=== PATIENT | male | born 1955 | race Caucasian/White ===

== ENCOUNTER → 2024-03-11 | Outpatient (CLI) | payer MEDICARE, SELFPAY ==
[2024-03-11 22:22] LABS: Absolute Lymphocyte Count 2.17 X10^3/uL (0.83-4.51); Absolute Neutrophil Count 7.7 X10^3/uL (2.0-7.7); Basophil# 0.04 X10^3/uL; Basophil% 0.4 % (0-1); Eosinophil# 0.18 X10^3/uL; Eosinophils% 1.7 % (0-5); Hematocrit 49.4 % (40-54); Hemoglobin 16.6 g/dL (13.0-16.5); Lymphocyte # 2.17 X10^3/ul (0.83-4.51); Lymphocyte % 20.1 % (19-41); Mean Corp Hgb Conc 33.6 g/dL (32-36); Mean Corpuscular Hgb 30.5 pg (27.0-32.0); Mean Corpuscular Volume 90.6 fL (80-94); Mean Platelet Vol. 11.2 fl (6.2-12.0); Monocyte# 0.71 X10^3/uL; Monocyte% 6.6 % (0-10); NRBC Flagged by Analyzer 0 % (0-5); Neutrophil # 7.66 X10^3/uL (2.7-7.7); Neutrophil % 70.9 % (47-70); Platelet Count 241 K/mm3 (150-450); RBC Distribution Width SD 42.5 fl (35.1-43.9); Red Blood Count 5.45 M/mm3 (4.6-6.2); White Blood Count 10.8 K/mm3 (4.4-11.0)
[2024-03-11 22:46] LABS: ALB/GLOB Ratio 1.3 RATIO (0.9-2.4); AST(SGOT) 23 U/L (15-37); Alanine Aminotransfer ALT/SGPT 43 U/L (16-61); Albumin, Serum 4.2 g/dL (3.2-5.0); Alkaline Phosphatase 83 U/L (45-117); Anion Gap 7 (5-15); BUN 25 mg/dL (7-18); BUN/Creat Ratio 19.5 RATIO (10-20); Calcium,Total 9.5 mg/dL (8.5-10.1); Chloride 108 mmol/L (98-107); Cholesterol 182 mg/dL (200); Creatinine, Serum 1.28 mg/dL (0.70-1.30); EST Glomerular Filtration Rate 59 mL/min (>60); Est Glom Filt Rate - Afr Amer 72 mL/min (>60); Globulin 3.3 g/dL (2.2-4.2); Glucose 102 mg/dL (74-106); High Density Lipoprotein 52 mg/dL; Potassium 3.9 mmol/L (3.5-5.1); Protein, Total 7.5 g/dL (6.4-8.2); Sodium Level 139 mmol/L (136-145); Thyroid Stim Hormone (TSH) 4.02 uIU/mL (0.358-3.74); Triglycerides 108 mg/dL; Very Low Density Lipoprotein 22 mg/dL (5-40)
== END | disposition home or self-care (01) ==
PROVIDERS: Referring Provider Nurse Practitioner; Visit Provider Nurse Practitioner
DX: E78.00 Pure hypercholesterolemia, unspecified (principal); K74.60 Unspecified cirrhosis of liver; B19.20 Unspecified viral hepatitis C without hepatic coma; F41.9 Anxiety disorder, unspecified
CPT/HCPCS: 80053; 80061; 80074; 84443; 85025

== ENCOUNTER → 2024-04-11 | Outpatient (CLI) | payer MEDICARE, SELFPAY ==
[2024-04-11 21:46] LABS: Thyroid Stim Hormone (TSH) 1.45 uIU/mL (0.358-3.74)
== END | disposition home or self-care (01) ==
PROVIDERS: Referring Provider Nurse Practitioner; Visit Provider Nurse Practitioner
DX: E03.9 Hypothyroidism, unspecified (principal)
CPT/HCPCS: 84443

== ENCOUNTER → 2025-04-21 | Outpatient (CLI) | payer MEDICARE, SELFPAY ==
--- OUTSIDE RECORDS SUMMARY | 2025-04-21 23:08 | XMS RPT_ITS | CCD ---
Author Organization [facility] Care Team Providers Care 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 Printer Name Role Phone Anay Díaz DO Primary Care Provider [phone] Franki MEAT SOAKER, Laverne Attending Unavailable Franki MEAT SOAKER, Laverne Referring Unavailable Franki MEAT SOAKER, Laverne Attending Unavailable Franki MEAT SOAKER, Laverne Referring Unavailable Anay Díaz DO Primary Care Provider [phone] Medications Current Medications Medication Drug Class(es) Dates Sig (Normalized) Sig (Original) escitalopram 10 mg oral tablet (3 sources) Serotonin Reuptake Inhibitor Start: 01-09-2023 End: 07-08-2023 take 1 tablet by mouth once daily escitalopram (Lexapro) 10 MG tablet Indications: Depression with anxiety Take 1 tablet (10 mg) by mouth daily. 30 tablet 5 01/09/2023 07/08/2023 Active Completed/Discontinued Medications Medication Drug Class(es) Dates Sig (Normalized) Sig (Original) bacitracin 0.5 unt/mg topical ointment (2 sources) Start: 10-29-2022 End: 10-29-2022 bacitracin ointment 10 ml lidocaine hydrochloride 10 mg/ml injection (2 sources) Antiarrhythmic, Amide Local Anesthetic Start: 10-29-2022 End: 10-29-2022 lidocaine PF (Xylocaine) 1 % injection - Pyxis ADS Override Pull Problems Active Problems Problem Classification Problem Date Documented Da te Episodic/Chronic Alcohol-related disorders (11 sources) Alcoholic cirrhosis; Translations: [Alcoholic cirrhosis of liver without ascites] Onset: 08-28-2019 Chronic Anxiety disorders (2 sources) Mixed anxiety and depressive disorder; Translations: [Other specified anxiety disorders] Onset: 02-09-2023 Chronic Disorders of lipid metabolism (1 source) Pure hypercholesterolemi a, unspecified; Translations: [Pure hypercholesterolemi a, unspecified] Onset: 06-01-2024 Chronic Essential hypertension (9 sources) Essential hypertension; Translations: [Essential (primary) hypertension] Onset: 02-06-2017 02-06-2017 Chronic Immunizations and screening for infectious disease (1 source) Viral screening status; Translations: [Encounter for screening for other viral diseases] Episodic Other and unspecified benign neoplasm (1 source) Hyperplastic polyp of large intestine; Translations: [Polyp of colon] Episodic Other ear and sense organ disorders (1 source) Bilateral tinnitus; Translations: [Tinnitus, bilateral] Episodic Other infections; including parasitic (1 source) H/O: infectious disease; Translations: [Personal history of other infectious and parasitic diseases] 01-17-2023 Episodic Other screening for suspected conditions (not mental disorders or infectious disease) (3 sources) Patient encounter status; Translations: [Encounter for screening for malignant neoplasm of colon] Episodic Thyroid disorders (1 source) Hypothyroidism, unspecified; Translations: [Hypothyroidism, unspecified] Onset: 05-06-2024 Chronic Unclassified (3 sources) Patient encounter status Past or Other Problems Problem Classification Problem Date Documented Da te Episodic/Chronic Open wounds of extremities (2 sources) Laceration of finger without foreign body; Translations: [Laceration without foreign body of right index finger without damage to nail, initial encounter] Episodic Other and unspecified benign neoplasm (1 source) Tubular adenoma of colon Onset: 07-06-2015 07-06-2015 Episodic Other and unspecified benign neoplasm (8 sources) History of adenomatous polyp of colon; Translations: [Personal history of colonic polyps] Onset: 02-18-2020 07-03-2022 Episodic Results Test Name Value Interpretation Reference Range Facil ity 36on 11-04-2024 36 Sent SubHub Message Normal [facility] Color [facility] Thyroid Stim Hormone (TSH)on 04-11-2024 TSH 1.45 uIU/mL Normal 0.358-3.74 [facility] Comment on above: Performed By: #### L 501.9583 #### [facility] [address] [place], [place], [id number] Hepatitis Panel Acuteon 07-0 HEPATITIS A-IgM Normal [facility] Comment on above: Result Comment: TEST RESULTS LIMITS Acute Hepatitis Hep A Ab, IgM Negative Negative HBsAg Screen Negative Negative Hep B Core Ab, IgM Negative Negative HCV Ab Reactive Abnormal Non Reactive Hepatitis C Quantitation HCV Not Detected IU/mL Test Information: The quantitative range of this assay is 15 IU/mL to 100 million IU/mL. Interpretation: Positive HCV antibody screen without the presence of HCV RNA is consistent with a resolved past infection or a false positive HCV antibody. Consider repeat testing after one month. TESTING PERFORMED AT [facility]. ORIGINAL REPORT ON FILE IN LAB CONTAINS ADDITIONAL TEST SITE INFORMATION. Performed By: #### L 501.9520, L100.0100, L500.4050, L500.4100, L3000.0375 #### [facility] [address] [place], [address] CBC W/Diff, Automatedon 06-2 -2023 Absolute Lymph 2.17 X10 3/uL Normal 0.83-4.51 [facility] Comment on above: Performed By: #### L 501.9520, L100.0100, L500.4050, L500.4100, L3000.0375 #### [facility] [address] [place], [address] Absolute Neut 7.7 X10 3/uL Normal 2.0-7.7 [facility] Comment on above: Performed By: #### L 501.9520, L100.0100, L500.4050, L500.4100, L3000.0375 #### [facility] [address] [place], [address] Basophils/100 WBC (Bld) 0.4 % Normal 0-1 [facility] Comment on above: Performed By: #### L 501.9520, L100.0100, L500.4050, L500.4100, L3000.0375 #### [facility] [address] [place], [address] Eosinophils/100 WBC (Bld) 1.7 % Normal 0-5 [facility] Comment on above: Performed By: #### L 501.9520, L100.0100, L500.4050, L500.4100, L3000.0375 #### [facility] [address] [place], [address] Erythrocyte distribution width (RBC) [Ratio] 13.0 % Normal 11.6-14.6 [facility] Comment on above: Performed By: #### L 501.9520, L100.0100, L500.4050, L500.4100, L3000.0375 #### [facility] [address] [place], [address] Hematocrit (Bld) [Volume fraction] 49.4 % Normal 40-54 [facility] Comment on above: Performed By: #### L 501.9520, L100.0100, L500.4050, L500.4100, L3000.0375 #### [facility] [address] [place], [address] Hemoglobin (Bld) [Mass/Vol] 16.6 g/dL High 13.0-16.5 [facility] Comment on above: Performed By: #### L 501.9520, L100.0100, L500.4050, L500.4100, L3000.0375 #### [facility] [address] [place], [address] IG% 0.300 Normal 0.0-0.9 [facility] Comment on above: Result Comment: IG% - Immature Granulocytes (promyelocytes, myelocytes and metamyelocytes) > 1% indicates that a LEFT SHIFT is Present. Performed By: #### L 501.9520, L100.0100, L500.4050, L500.4100, L3000.0375 #### [facility] [address] [place], [address] Lymphocytes/100 WBC (Bld) 20.1 % Normal 19-41 [facility] Comment on above: Performed By: #### L 501.9520, L100.0100, L500.4050, L500.4100, L3000.0375 #### [facility] [address] [place], [address] MCH (RBC) [Entitic mass] 30.5 pg Normal 27.0-32.0 [facility] Comment on above: Performed By: #### L 501.9520, L100.0100, L500.4050, L500.4100, L3000.0375 #### [facility] [address] [place], [address] MCHC (RBC) [Mass/Vol] 33.6 g/dL Normal 32-36 [facility] Comment on above: Performed By: #### L 501.9520, L100.0100, L500.4050, L500.4100, L3000.0375 #### [facility] [address] [place], [address] MCV (RBC) [Entitic vol] 90.6 fL Normal 80-94 [facility] Comment on above: Performed By: #### L 501.9520, L100.0100, L500.4050, L500.4100, L3000.0375 #### [facility] [address] [place], [address] Monocytes/100 WBC (Bld) 6.6 % Normal 0-10 [facility] Comment on above: Performed By: #### L 501.9520, L100.0100, L500.4050, L500.4100, L3000.0375 #### [facility] [address] [place], [address] Neutrophils/100 WBC (Bld) 70.9 % High 47-70 [facility] Comment on above: Performed By: #### L 501.9520, L100.0100, L500.4050, L500.4100, L3000.0375 #### [facility] [address] [place], [address] Nucleated RBC (Bld) [#/Vol] 0 10*3/uL Normal 0-5 [facility] Comment on above: Performed By: #### L 501.9520, L100.0100, L500.4050, L500.4100, L3000.0375 #### [facility] [address] [place], [address] Platelet mean volume (Bld) [Entitic vol] 11.2 fL Normal 6.2-12.0 [facility] Comment on above: Performed By: #### L 501.9520, L100.0100, L500.4050, L500.4100, L3000.0375 #### [facility] [address] [place], [address] Platelets (Bld) [#/Vol] 241 10*3/uL Normal 150-450 [facility] Comment on above: Performed By: #### L 501.9520, L100.0100, L500.4050, L500.4100, L3000.0375 #### [facility] [address] [place], [address] RBC (Bld) [#/Vol] 5.45 10*6/uL Normal 4.6-6.2 [facility] Comment on above: Performed By: #### L 501.9520, L100.0100, L500.4050, L500.4100, L3000.0375 #### [facility] [address] [place], [address] RDW SD 42.5 fl Normal 35.1-43.9 [facility] Comment on above: Performed By: #### L 501.9520, L100.0100, L500.4050, L500.4100, L3000.0375 #### [facility] [address] [place], [address] WBC (Bld) [#/Vol] 10.8 10*3/uL Normal 4.4-11.0 [facility] Comment on above: Performed By: #### L 501.9520, L100.0100, L500.4050, L500.4100, L3000.0375 #### [facility] [address] [place], [address] Comprehensive Metabolic Prof [facility] 03-11-2024 Albumin [Mass/Vol] 4.2 g/dL Normal 3.2-5.0 [facility] Comment on above: Performed By: #### L 501.9520, L100.0100, L500.4050, L500.4100, L3000.0375 #### [facility] [address] [place], [address] Albumin/Globulin [Mass ratio] 1.3 {ratio} Normal 0.9-2.4 [facility] Comment on above: Performed By: #### L 501.9520, L100.0100, L500.4050, L500.4100, L3000.0375 #### [facility] [address] [place], [address] ALK P 83 U/L Normal 45-117 [facility] Comment on above: Performed By: #### L 501.9520, L100.0100, L500.4050, L500.4100, L3000.0375 #### [facility] [address] [place], [address] ALT [Catalytic activity/Vol] 43 U/L Normal 16-61 [facility] Comment on above: Performed By: #### L 501.9520, L100.0100, L500.4050, L500.4100, L3000.0375 #### [facility] [address] [place], [address] AST [Catalytic activity/Vol] 23 U/L Normal 15-37 [facility] Comment on above: Performed By: #### L 501.9520, L100.0100, L500.4050, L500.4100, L3000.0375 #### [facility] [address] [place], [address] Bilirubin [Mass/Vol] 0.60 mg/dL Normal 0.20-1.00 [facility] Comment on above: Result Comment: For patients on eltrombopag therapy, use of Dimension [place] TBIL is not recommended. Performed By: #### L 501.9520, L100.0100, L500.4050, L500.4100, L3000.0375 #### [facility] [address] [place], [address] BUN/CRE 19.5 RATIO Normal 10-20 [facility] Comment on above: Performed By: #### L 501.9520, L100.0100, L500.4050, L500.4100, L3000.0375 #### [facility] [address] [place], [address] CA,Total 9.5 mg/dL Normal 8.5-10.1 [facility] Comment on above: Performed By: #### L 501.9520, L100.0100, L500.4050, L500.4100, L3000.0375 #### [facility] [address] [place], [address] Chloride [Moles/Vol] 108 mmol/L High 98-107 [facility] Comment on above: Performed By: #### L 501.9520, L100.0100, L500.4050, L500.4100, L3000.0375 #### [facility] [address] [place], [address] CO2 [Moles/Vol] 24.0 mmol/L Normal 21.0-32.0 [facility] Comment on above: Performed By: #### L 501.9520, L100.0100, L500.4050, L500.4100, L3000.0375 #### [facility] [address] [place], [address] Creatinine [Mass/Vol] 1.28 mg/dL Normal 0.70-1.30 [facility] Comment on above: Result Comment: The validity of the calculated GFR GFRAA in patients over 70 years has not been determined. Clinical correlation is essential. Performed By: #### L 501.9520, L100.0100, L500.4050, L500.4100, L3000.0375 #### [facility] [address] [place], [address] EST GFR - AA 72 mL/min Normal >60 [facility] Comment on above: Result Comment: Afri can [place] GFR Calc Performed By: #### L 501.9520, L100.0100, L500.4050, L500.4100, L3000.0375 #### [facility] [address] [place], [address] GAP 7 Normal 5-15 [facility] Comment on above: Performed By: #### L 501.9520, L100.0100, L500.4050, L500.4100, L3000.0375 #### [facility] [address] [place], [address] GFR/1.73 sq M.predicted among non-blacks MDRD (S/P/Bld) [Vol rate/Area] 59 mL/min/{1.73_m2} Low >60 [facility] Comment on above: Result Comment: Non- GFR Calc Performed By: #### L 501.9520, L100.0100, L500.4050, L500.4100, L3000.0375 #### [facility] [address] [place], [address] Globulin (S) [Mass/Vol] 3.3 g/dL Normal 2.2-4.2 [facility] Comment on above: Performed By: #### L 501.9520, L100.0100, L500.4050, L500.4100, L3000.0375 #### [facility] [address] [place], [address] Glucose [Mass/Vol] 102 mg/dL Normal 74-106 [facility] Comment on above: Result Comment: Fast ing Glucose result from 100 to 125 mg/dL suggests IMPAIRED HOMEOSTASIS per A.D.A. criteria. Performed By: #### L 501.9520, L100.0100, L500.4050, L500.4100, L3000.0375 #### [facility] [address] [place], [address] Potassium [Moles/Vol] 3.9 mmol/L Normal 3.5-5.1 [facility] Comment on above: Performed By: #### L 501.9520, L100.0100, L500.4050, L500.4100, L3000.0375 #### [facility] [address] [place], [address] Sodium [Moles/Vol] 139 mmol/L Normal 136-145 [facility] Comment on above: Performed By: #### L 501.9520, L100.0100, L500.4050, L500.4100, L3000.0375 #### [facility] [address] [place], [address] T PROT 7.5 g/dL Normal 6.4-8.2 [facility] Comment on above: Performed By: #### L 501.9520, L100.0100, L500.4050, L500.4100, L3000.0375 #### [facility] [address] [place], [address] Urea nitrogen [Mass/Vol] 25 mg/dL High 7-18 [facility] Comment on above: Performed By: #### L 501.9520, L100.0100, L500.4050, L500.4100, L3000.0375 #### [facility] [address] [place], [address] Lipid Profileon 03-11-2024 Cholesterol [Mass/Vol] 182 mg/dL Normal 200 [facility] Comment on above: Result Comment: <200 mg/dL Desirable 200-240 mg/dL Borderline >240 mg/dL High Risk Performed By: #### L 501.9520, L100.0100, L500.4050, L500.4100, L3000.0375 #### [facility] [address] [place], [address] Cholesterol in HDL [Mass/Vol] 52 mg/dL Normal [facility] Comment on above: Result Comment: The drugs N-Acetylcysteine and Metamizole may falsely depress this assay. Reference Range HDL <40 mg/dL Low HDL Cholesterol HDL >or= 60 mg/dL High HDL Cholesterol Performed By: #### L 501.9520, L100.0100, L500.4050, L500.4100, L3000.0375 #### [facility] [address] [place], [address] Cholesterol in LDL [Mass/Vol] 108 mg/dL Normal 0-130 [facility] Comment on above: Performed By: #### L 501.9520, L100.0100, L500.4050, L500.4100, L3000.0375 #### [facility] [address] [place], [address] Cholesterol in VLDL [Mass/Vol] 22 mg/dL Normal 5-40 [facility] Comment on above: Performed By: #### L 501.9520, L100.0100, L500.4050, L500.4100, L3000.0375 #### [facility] [address] [place], [address] Triglyceride [Mass/Vol] 108 mg/dL Normal [facility] Comment on above: Result Comment: The drugs N-Acetylcysteine and Metamizole may falsely depress this assay. Serum Triglycerides Reference Interval Normal <150 mg/dL Borderline high 150 - 199 mg/dL High 200 - 499 mg/dL Very High > or = 500 mg/dL Performed By: #### L 501.9520, L100.0100, L500.4050, L500.4100, L3000.0375 #### [facility] [address] [place], [address] Thyroid Stim Hormone (TSH)on 03-11-2024 TSH 4.02 uIU/mL High 0.358-3.74 [facility] Comment on above: Performed By: #### L 501.9520, L100.0100, L500.4050, L500.4100, L3000.0375 #### [facility] [address] [place], [address] HCV RNA panel CESAR+probeon HCV RNA CESAR+probe [Log units/Vol] Not detected [facility] HCV RNA CESAR+probe Qn Not detected [facility] Interpretation and review of laboratory results Normal [facility] The linear detection limit for this assay is 15 HCV IU/ml. A result of <15 IU (<1.18 log IU) indicates that HCV was detected, but at a level below the linear cutoff. A result of None Detected means that no HCV RNA was detected. This test is performed via rtPCR methodology. [facility] XR Hand - right 3 Viewson No evidence of acute osseous abnormality. No radiopaque foreign body. Report Dictated on Electronically Signed By: Thomas Escobar Electronically Signed Date/Time: 10/29/2022 8:26 PM EST [facility] [facility] Patient Name: JESSE EMERY : 1955 Exam Date/Time: 10/29/2022 20:14 Procedure: XR HAND 3+ VIEWS RIGHT Ordering Provider: RIVERA NICHOLAS Reason For Exam: right index finger distal phalynx laceration RIGHT HAND: CLINICAL INDICATION: Pain. TECHNIQUE: PA, Lat, and oblique COMPARISON: None. FINDINGS: No evidence of acute fracture or dislocation. 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 Vascular calcifications without evidence of radiopaque foreign body. [facility] Thomas Escobar MD - 10/29/2022 Patient Name: JESSE EMERY : 1955 Exam Date/Time: 10/29/2022 20:14 Procedure: XR HAND 3+ VIEWS RIGHT Ordering Provider: RIVERA NICHOLAS Reason For Exam: right index finger distal phalynx laceration RIGHT HAND: CLINICAL INDICATION: Pain. TECHNIQUE: PA, Lat, and oblique COMPARISON: None. FINDINGS: No evidence of acute fracture or dislocation. 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 Vascular calcifications without evidence of radiopaque foreign body. IMPRESSION: No evidence of acute osseous abnormality. No radiopaque foreign body. Report Dictated on Electronically Signed By: Thomas Escobar Electronically Signed Date/Time: 10/29/2022 8:26 PM EST [facility] [employer] Radiology Study observation (narrative) [employer] XR Hand - right 3 ViewsOrder ed By: Thomas Escobar on 10-29-2022 [employer] Work Phone: CORONAVIRUS 2019 BY PCRon CORONAVIRUS 2019,PCR NOT DETECTED Normal Not Detected [facility] Comment on above: Result Comment: This assay is designed to detect the N, ORF1ab and/or S genes of SARS-CoV-2 via nucleic acid amplification. A Negative (NOT DETECTED) result does not preclude 2019-nCoV infection since the adequacy of sample collection and/or low viral burden may result in presence of viral nucleic acids below the clinical sensitivity of this test method. Negative (NOT DETECTED) result should not be used as the sole basis for treatment or other patient management decisions. Rather negative results should be combined with clinical observations, patient history, and epidemiological information to make patient management decisions. Fact sheet for providers: https://www.fda.gov/media/593326/download Fact sheet for patients: https://www.fda.gov/media/011868/download This test has received FDA Emergency Use Authorization (EUA) and has been verified by [facility] ([facility]). This test is only authorized for the duration of time that circumstances exist to justify the authorization of the emergency use of in vitro diagnostic tests for the detection of SARS-CoV-2 virus and/or diagnosis of COVID-19 infection under section 564(b)(1) of the Act, 21 U.S.C. 360bbb-3(b)(1), unless the authorization is terminated or revoked sooner. [facility] is certified under CLIA-88 as qualified to perform high complexity testing. Testing is performed in the [facility] laboratories located at [address] [place] [address]. Performed By: #### C OV19 #### [place] [address] Lab Specimen Source Nasal, Nasopharyngeal Normal [facility] Comment on above: Performed By: #### C OV19 #### [place] [address] Basic Metabolic Panelon 08-18 Calcium [Mass/Vol] 10.0 mg/dL Normal 8.4-10.4 [facility] [employer] [facility] Comment on above: Performed By: #### L FT3, BMP3, LIPD2 #### [facility] [employer] [address] [place] [address] #### HIV4 #### [address] Glucose [Mass/Vol] 102 mg/dL High 70-100 [facility] Comment on above: Performed By: #### L FT3, BMP3, LIPD2 #### [facility] [address] [place] [address] #### HIV4 #### [address] Urea nitrogen [Mass/Vol] 18 mg/dL Normal 7-20 [facility] Comment on above: Performed By: #### L FT3, BMP3, LIPD2 #### [facility] [address] [place] [address] #### HIV4 #### [address] Anion gap [Moles/Vol] 13 Normal [facility] Comment on above: Performed By: #### L FT3, BMP3, LIPD2 #### [address] [place] [address] #### HIV4 #### [address] CO2 [Moles/Vol] 26 mmol/L Normal 22-30 [facility] Comment on above: Performed By: #### L FT3, BMP3, LIPD2 #### [address] [place] [address] #### HIV4 #### [address] Creatinine [Mass/Vol] 1.14 mg/dL Normal 0.52-1.25 [facility] Comment on above: Performed By: #### L FT3, BMP3, LIPD2 #### [facility] [address] [place] [address] #### HIV4 #### [address] GFR/1.73 sq M predicted among blacks MDRD (S/P/Bld) [Vol rate/Area] mL/min/{1.73_m2} Normal >60 [facility] Comment on above: Performed By: #### L FT3, BMP3, LIPD2 #### [address] [place] [address] #### HIV4 #### [address] GFR/1.73 sq M predicted among non-blacks MDRD (S/P/Bld) [Vol rate/Area] mL/min/{1.73_m2} Normal >60 [facility] Comment on above: Result Comment: Sour ce- MDRD equation with creatinine calibration to IDMS(NKDEP) eGFR not recommended for drug dose adjustment Performed By: #### L FT3, BMP3, LIPD2 #### [address] [place] [address] #### HIV4 #### [address] Potassium [Moles/Vol] 4.5 mmol/L Normal 3.5-5.1 [facility] Comment on above: Performed By: #### L FT3, BMP3, LIPD2 #### [address] [place] [address] #### HIV4 #### [address] Sodium [Moles/Vol] 140 mmol/L Normal 135-145 [facility] Comment on above: Performed By: #### L FT3, BMP3, LIPD2 #### [address] [place] [address] #### HIV4 #### [address] [id number] Chloride [Moles/Vol] 102 mmol/L Normal 98-107 [facility] Comment on above: Performed By: #### L FT3, BMP3, LIPD2 #### [address] [place] [address] #### HIV4 #### [address] Basic Metabolic PanelOrdered By: Anay Díaz on 08-28-2019 Anion gap [Moles/Vol] 13 mmol/L [facility] Work Phone: Calcium [Mass/Vol] 10.0 mg/dL 8.4 - 10. 4 mg/dL [facility] Work Phone: Chloride [Moles/Vol] 102 mmol/L 98 - 107 mmol/L [facility] Work Phone: CO2 [Moles/Vol] 26 mmol/L 22 - 30 mmol/L [facility] Work Phone: Creatinine [Mass/Vol] 1.14 mg/dL 0.52 - 1.25 mg/dL [facility] Work Phone: EGFR IF NonAfrican Bermudian >60.0 >60 mL/min [facility] Work Phone: Comment on above: Source- MDRD equatio n with creatinine calibration to IDMS(NKDEP) eGFR not recommended for drug dose adjustment GFR/1.73 sq M.predicted among blacks MDRD (S/P/Bld) [Vol rate/Area] mL/min/{1.73_m2} >60 mL/min [facility] Work Phone: Glucose [Mass/Vol] 102 mg/dL High 70 - 100 mg/dL [facility] Work Phone: Potassium [Moles/Vol] 4.5 mmol/L 3.5 - 5.1 mmol/L [facility] Work Phone: Sodium [Moles/Vol] 140 mmol/L 135 - 145 mmol/L [facility] Work Phone: Urea nitrogen [Mass/Vol] 18 mg/dL 7 - 20 mg/dL [facility] Work Phone: HIV 1,2 Ab; p24 Agon 019 HIV 1,2 Ab; p24 Ag NONREACTIVE Normal Nonreactive [facility] Comment on above: Result Comment: Resu lts obtained using the FDA cleared 4th generation HIV test. This test detects antibodies to HIV1, HIV2, HIV Group O, and the presence of the HIV-1 p24 antigen. A Non-Reactive re- sult indicates the patient is negative for both HIV antibody and HIV p24 antigen. All reactive results will undergo reflex confirmation testing at an additional charge. Performed By: #### L FT3, BMP3, LIPD2 #### [address] [place] [address] #### HIV4 #### [address] [address] HIV ScreenOrdered By: Amandeep Díaz on 08-28-2019 HIV 1+2 [id number] AG, EIA Non-Reactive Nonreactive NA [facility] Work Phone: Comment on above: Results obtained usi ng the FDA cleared 4th generation HIV test. This test detects antibodies to HIV1, HIV2, HIV Group O, and the presence of the HIV-1 p24 antigen. A Non-Reactive re- sult indicates the patient is negative for both HIV antibody and HIV p24 antigen. All reactive results will undergo reflex confirmation testing at an additional charge. Test Performed by [facility], [address] [place] [address] Work Phone: Hepatic Functionon 9 ALP [Catalytic activity/Vol] 67 U/L Normal 38-126 [facility] Comment on above: Performed By: #### L FT3, BMP3, LIPD2 #### [address] [address] #### HIV4 #### [address] [address] ALT [Catalytic activity/Vol] 47 U/L Normal 13-69 [facility] Comment on above: Performed By: #### L FT3, BMP3, LIPD2 #### [address] [address] #### HIV4 #### [address] [address] AST [Catalytic activity/Vol] 33 U/L Normal 15-46 [facility] Comment on above: Performed By: #### L FT3, BMP3, LIPD2 #### [address] [place] [address] #### HIV4 #### [address] [address] Bilirubin [Mass/Vol] 1.0 mg/dL Normal 0.2-1.3 [facility] Comment on above: Performed By: #### L FT3, BMP3, LIPD2 #### [facility] [address] [place] [address] #### HIV4 #### [address] [address] Bilirubin.direct [Mass/Vol] 0.0 mg/dL Normal 0.0-0.3 [facility] Comment on above: Performed By: #### L FT3, BMP3, LIPD2 #### [facility] [address] [place] [address] #### HIV4 #### [address] [address] Protein [Mass/Vol] 7.9 g/dL Normal 6.3-8.2 [facility] Comment on above: Performed By: #### L FT3, BMP3, LIPD2 #### [address] [place] [address] #### HIV4 #### [address] [address] Albumin [Mass/Vol] 4.8 g/dL Normal 3.5-5.0 [facility] Comment on above: Performed By: #### L FT3, BMP3, LIPD2 #### [address] [place] [address] #### HIV4 #### [address] [address] Hepatic Function PanelOrdere d By: Anay Díaz on 08-28-2019 Albumin [Mass/Vol] 4.8 g/dL 3.5 - 5 g/dL [facility] Work Phone: ALP [Catalytic activity/Vol] 67 U/L 38 - 126 U/L [facility] Work Phone: ALT [Catalytic activity/Vol] 47 U/L 13 - 69 U/L [facility] Work Phone: AST [Catalytic activity/Vol] 33 U/L 15 - 46 U/L [facility] Work Phone: Bilirubin [Mass/Vol] 1.0 mg/dL 0.2 - 1.3 mg/dL [facility] Work Phone: Bilirubin.indirect [Mass/Vol] 0.0 mg/dL 0 - 0.3 mg/dL [facility] Work Phone: Protein [Mass/Vol] 7.9 g/dL 6.3 - 8.2 g/dL [facility] Work Phone: Lipid Panelon 08-28-2019 Cholesterol in HDL [Mass/Vol] 48 mg/dL Normal 40-60 [facility] Comment on above: Performed By: #### L FT3, BMP3, LIPD2 #### [facility] [address] [facility] [address] #### HIV4 #### [address] [address] Cholesterol.total/Chol esterol in HDL [Mass ratio] 4 Normal [facility] Comment on above: Result Comment: Ref Range: < 3 Low Risk for CHD 3-6 Mod Risk for CHD > 6 High Risk for CHD Performed By: #### L FT3, BMP3, LIPD2 #### [facility] [address] [facility] [place] [address] #### HIV4 #### [address] [address] Protein [Mass/Vol] 114 mg/dL Abnormal <100 [facility] Comment on above: Performed By: #### L FT3, BMP3, LIPD2 #### [facility] [address] [place] [address] #### HIV4 #### [address] [address] Triglyceride [Mass/Vol] 145 mg/dL Normal <150 [facility] Comment on above: Performed By: #### L FT3, BMP3, LIPD2 #### [facility] [address] [place] [address] #### HIV4 #### [employer] [address] [place] [address] Cholesterol [Mass/Vol] 191 mg/dL Normal < 200 [facility] [employer] [facility] Comment on above: Performed By: #### L FT3, BMP3, LIPD2 #### [employer] [address] [place] [address] #### HIV4 #### [employer] [address] [place] [address] Lipid PanelOrdered By: Jayesh Díaz on 08-28-2019 Cholesterol [Mass/Vol] 191 mg/dL <200 [facility] [employer] Work Phone: Cholesterol in HDL [Mass/Vol] 48 mg/dL 40 - 60 mg/dL [employer] Work Phone: Cholesterol in LDL [Mass/Vol] 114 mg/dL Abnormal <100 [employer] Phone: Cholesterol.total/Chol esterol in HDL [Mass ratio] 4 {ratio} [employer] Work Phone: Comment on above: Ref Range: < 3 Low Risk for CHD 3-6 Mod Risk for CHD > 6 High Risk for CHD Triglyceride [Mass/Vol] 145 mg/dL <150 [employer] Phone: No Panel InformationOrdered By: Anay Díaz on 08-28-2019 Interpretation and review of laboratory results Abnormal [employer] Work Phone: Test Performed by [employer], [address] , [place] [address] [employer] Work Phone: Vital Signs Date Time Vital Sign Value Performing Clinician Derici eddie 01-09-2023 14:50-0400 Body height 170.2 cm Anay Díaz [employer] Work Phone: [employer] 01-09-2023 14:50-0400 Body mass index (BMI) [Ratio] 28.19 kg/m2 Anay Díaz [employer] Work Phone: [employer] 01-09-2023 14:50-0400 Body weight 81.65 kg Anay Díaz DO Work Phone: [employer] 01-09-2023 14:50-0400 Diastolic blood pressure 78 mm[Hg] Anay Díaz DO Work Phone: [facility] [employer] 01-09-2023 14:50-0400 Heart rate 72 /min Anay Díaz DO Work Phone: [facility] 01-09-2023 14:50-0400 SaO2% (BldA) [Mass fraction] 97 % Anay Díaz DO Work Phone: [facility] 01-09-2023 14:50-0400 Systolic blood pressure 122 mm[Hg] Anay Díaz DO Work Phone: [facility] 10-29-2022 21:40-0500 Diastolic blood pressure 78 mm[Hg] Duke Rivera MD Work Phone: [facility] 10-29-2022 21:40-0500 Heart rate 97 /min Duke Rivera MD Work Phone: [facility] 10-29-2022 21:40-0500 Respiratory rate 18 /min Duke Rivera MD Work Phone: [facility] [employer] 10-29-2022 21:40-0500 SaO2% (BldA) [Mass fraction] 97 % Duke Rivera MD Work Phone: [facility] 10-29-2022 21:40-0500 Systolic blood pressure 130 mm[Hg] Duke Rivera MD Work Phone: [facility] 10-29-2022 19:57-0500 Body height 170.2 cm Duke Rivera MD Work Phone: [facility] [employer] 10-29-2022 19:57-0500 Body mass index (BMI) [Ratio] 28.19 kg/m2 Duke Rivera MD Work Phone: [facility] [employer] 10-29-2022 19:57-0500 Body temperature 98.29 [degF] Duke Rivera MD Work Phone: [facility] [employer] 10-29-2022 19:57-0500 Body weight 81.65 kg Duke Rivera MD Work Phone: [facility] Encounters Encounter Date Encounter Type Care Provider Facility Start: 04-11-2024 End: 04-11-2024 ambulatory Laverneharjit HeathDoan [employer] Facility:[facility] Start: 03-11-2024 End: 03-11-2024 ambulatory Laverne Doan [employer] Facility:[facility] Start: 02-07-2023 Telephone encounter Heidi south PA-C Work Phone: [facility] Laproscopic Surgery Comment on above: Results (Colonoscopy ) Start: 01-17-2023 End: 01-17-2023 ambulatory Anay Díaz DO Work Phone: [facility] Laboratory Comment on above: Arrived Personal history of other infectious and parasitic diseases (Primary Dx) Start: 01-09-2023 End: 01-09-2023 Office outpatient new 45 minutes Anay Díaz DO Work Phone: [facility] Family Medicine Comment on above: Depression with anxi ety (Primary Dx); Hyperplastic colonic polyp, unspecified part of colon; Screen for colon cancer; Need for hepatitis C screening test; Alcoholic cirrhosis of liver without ascites (CMS/HCC) (HCC); Screening for diabetes mellitus; Screening, lipid; Tinnitus of both ears Start: 10-29-2022 End: 10-29-2022 Subsequent hospital visit by physician [facility] [employer] [facility] Radiology Comment on above: Arrived Start: 10-29-2022 End: 10-29-2022 Emergency department patient visit Duke Rivera MD Work Phone: [facility] ED Comment on above: Laceration of right index finger without foreign body without damage to nail, initial encounter (Primary Dx) Start: 08-28-2019 End: 08-28-2019 Subsequent hospital visit by physician Anay Díaz DO Work Phone: [facility] Laboratory Comment on above: Alcoholic cirrhosis of liver without ascites (HCC); Screening for diabetes mellitus; Screening for HIV without presence of risk factors; Screening for hyperlipidemia Procedures Date Procedure Procedure Detail Performing Clinician Start: 02-02-2023 Colonoscopy Heidi south PA-C Work Phone: Start: 01-17-2023 Iadna hepatitis c qu 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 Anay Díaz DO Work Phone: Start: 01-10-2023 Lipid 1996 panel - S melany or Plasma [facility] Start: 10-29-2022 Radex hand minimum 3 views Duke Rivera MD Work Phone: Start: 08-28-2019 Basic metabolic pane l calcium total Anay Díaz DO Work Phone: Start: 08-28-2019 Lipid panel Anay Díaz DO Work Phone: Start: 08-28-2019 Lipid 1996 panel - S melany or Plasma Duke Rivera MD Work Phone: Plan of Treatment Date Care Activity Detail Author Start: 10-29-2032 DTaP/Tdap/Td Vaccine s (2 - Td or Tdap) DTaP/Tdap/Td Vaccines (2 - Td or Tdap) [facility] Start: 01-11-2028 Lipid panel Lipid Panel [facility] Start: 02-02-2026 Screening for malign ant neoplasm of colon [facility] Start: 01-10-2026 Diabetes mellitus screening Diabetes Screening [facility] Start: 08-28-2024 Lipid panel Lipid Panel [facility] Start: 05-19-2023 Influenza vaccination [facility] Start: 02-09-2023 End: 02-09-2023 Patient encounter procedure 02/09/2023 Office Visit Family Medicine Anay Díaz, [address] [place] [address] [facility] Medical [facility] Family Medicine Start: 02-02-2023 End: 02-02-2023 Admission to same day surgery center 02/02/2023 Surgery Procedural Aidan Valadez MD [address] [place] [address] [address] [place] [address] COLONOSCOPY WITH BIOPSY [32020 (CPT )] [facility] Comment on above: COLONOSCOPY WITH BIO PSY [77508 (CPT )] Start: 02-02-2023 End: 02-02-2023 Colonoscopy w/biopsy single/multiple COLONOSCOPY WITH BIOPSY Polyp of colon 02/02/2023 11:15 AM EDT [facility] OR Start: 02-02-2023 Subsequent hospital visit by physician 02/02/2023 Hospital Encounter Procedural [facility] Start: 01-09-2023 End: 01-10-2024 CBC panel - Blood by Automated count CBC Lab Routine Alcoholic cirrhosis of liver without ascites (CMS/HCC) (HCC) Expected: 01/09/2023 (Approximate), Expires: 01/10/2024 [email or web address] Comment on above: Expected: 01/09/2023 (Approximate), Expires: 01/10/2024 Start: 01-09-2023 End: 01-10-2024 Cobalamin (Vitamin B12) [Mass/volume] in Serum or Plasma Vitamin B12 Lab Routine Alcoholic cirrhosis of liver without ascites (CMS/HCC) (HCC) Expected: 01/09/2023 (Approximate), Expires: 01/10/2024 [employer] Work Phone: Comment on above: Expected: 01/09/2023 (Approximate), Expires: 01/10/2024 Start: 01-09-2023 End: 01-10-2024 Comprehensive metabolic 1998 panel - Serum or Plasma Comprehensive metabolic panel Lab Routine Alcoholic cirrhosis of liver without ascites (CMS/HCC) (HCC) Expected: 01/09/2023 (Approximate), Expires: 01/10/2024 [email or web address] Comment on above: Expected: 01/09/2023 (Approximate), Expires: 01/10/2024 Start: 01-09-2023 End: 01-10-2024 Folate [Mass/volume] in Serum or Plasma Folate Lab Routine Alcoholic cirrhosis of liver without ascites (CMS/HCC) (HCC) Expected: 01/09/2023 (Approximate), Expires: 01/10/2024 [email or web address] Comment on above: Expected: 01/09/2023 (Approximate), Expires: 01/10/2024 Start: 01-09-2023 End: 01-10-2024 Hemoglobin A1c/Hemoglobin.total in Blood Hemoglobin A1c Lab Routine Screening for diabetes mellitus Expected: 01/09/2023 (Approximate), Expires: 01/10/2024 [email or web address] Comment on above: Expected: 01/09/2023 (Approximate), Expires: 01/10/2024 Start: 01-09-2023 End: 01-10-2024 Hepatitis C virus Ab [Presence] in Serum or Plasma by Immunoassay Hepatitis C antibody Lab Routine Alcoholic cirrhosis of liver without ascites (CMS/HCC) (HCC) Expected: 01/09/2023 (Approximate), Expires: 01/10/2024 [facility] Comment on above: Expected: 01/09/2023 (Approximate), Expires: 01/10/2024 Start: 01-09-2023 End: 01-10-2024 Lipid 1996 panel - Serum or Plasma Lipid panel Lab Routine Screening, lipid Expected: 01/09/2023 (Approximate), Expires: 01/10/2024 [facility] [employer] Comment on above: Expected: 01/09/2023 (Approximate), Expires: 01/10/2024 Start: 05-19-2022 Influenza vaccination Influenza Vacc ine (#1) [facility] [employer] Start: 2021 Pneumococcal Vaccine : 65+ Years (#3) Pneumococcal Vaccine: 65+ Years (#3) [facility] [employer] Start: 2021 Pneumococcal Vaccine : 65+ Years (3 - PPSV23 if available, else PCV20) Pneumococcal Vaccine: 65+ Years (3 - PPSV23 if available, else PCV20) [facility] [employer] Start: 03-07-2019 Annual Wellness Visi t (AWV) Annual Wellness Visit (AWV) [facility] Work Phone: Start: 06-11-2017 Colon cancer screen colonoscopy Colon cancer screen colonoscopy [facility] Work Phone: Start: 05-05-2017 Creatinine monitoring Creatinine mon itoring [facility] Work Phone: Start: 05-05-2017 Potassium monitoring Potassium monit oring [facility] Work Phone: Start: 2006 Shingles Vaccine (1 of 2) Shingles Vaccine (1 of 2) [facility] Work Phone: Start: 2006 Zoster Vaccines (1 of 2) Zoste r Vaccines (1 of 2) [facility] [employer] Start: 1996 Diabetes screen Diabetes screen [facility] Work Phone: Start: 1996 Lipid screen Lipid screen [facility] Work Phone: Start: 1974 Diabetes mellitus screening Diabetes Screening [facility] [employer] Start: 1974 Hepatitis C screening Hepatitis C Sc reening [facility] Start: 1971 HIV screen HIV screen [facility] Work Phone: Start: 1968 Depression Screening Depression Scre ening [facility] [employer] Start: 1968 Depresssion Monitoring Depresssion M onitoring [facility] [employer] Start: 1967 DTaP/Tdap/Td vaccine (1 - Tdap) DTaP/Tdap/Td vaccine (1 - Tdap) [facility] Work Phone: Start: 1956 Screening for malign ant neoplasm of colon [facility] [employer] OUTSIDE PROCEDURE SCAN OUTSIDE P ROCEDURE SCAN Procedures Ordered: 01/17/2023 [facility] [employer] System Comment on above: Ordered: 01/17/2023 Immunizations Immunization Date Immunization Notes Care Provider Fa cility 10-29-2022 tetanus toxoid, redu stuart diphtheria toxoid, and acellular pertussis vaccine, adsorbed Duke Rivera MD Work Phone: [facility] [employer] 06-15-2020 influenza virus vacc ine, unspecified formulation Duke Rivera MD Work Phone: [facility] [employer] 06-18-2019 influenza, injectabl e, quadrivalent, preservative free Anay Díaz DO Work Phone: [facility] [employer] 06-18-2019 pneumococcal conjuga te vaccine, 13 valent Anay Díaz DO Work Phone: [facility] Work Phone: 08-26-2014 pneumococcal polysaccharide vaccine, 23 valent Anay Díaz DO Work Phone: [facility] [employer] Payers Date Payer Category Payer Self-pay 2024 Unknown [id number] 2022 Medicare [id number] 2016 Medicare UHC MEDICARE UHC MEDICARE COMPLETE xxxxxxxxx 2016-Present xxxxxxxxx [id number] Unknown [id number] Unknown [id number] Social History Date Type Detail Facility Start: 08-28-2019 End: 10-29-2022 Tobacco smoking status NHIS Former smoker [facility] Work Phone: End: 08-28-1984 History of tobacco use Current smoker [facility] End: 08-28-1984 History of tobacco use Cigarette Smoker [facility] Start: 08-28-2019 End: 10-29-2022 Cigarettes smoked current (pack per day) - Reported [facility] Work Phone: Start: 08-28-2019 End: 10-29-2022 Alcohol intake Current drinker of alcohol (finding) [facility] Work Phone: Start: 07-06-2015 Alcohol Comment 5 cans of beer a week, caffeine use none [employer] Work Phone: Start: 1955 Sex Assigned At Not on file [facility] [employer] Work Phone: Start: 10-29-2022 Tobacco use and exposure Smoke less tobacco non-user [facility] Start: 10-19-2022 End: 02-09-2023 Exposure to SARS-CoV-2 (event) Not sure [facility] Start: 01-30-2023 Tobacco use and exposure User of smokeless tobacco [facility] History of tobacco use Snuff User [facility] Start: 02-09-2023 Tobacco use panel [facility] Clinical Notes 10-29-2022 to 02-07-2023 Telephone Encounter - Heidi Oscar PA-C - 02/07/2023 1:00 PM EDTTelephone Encounter - Heidi Oscar PA-C - 02/07/2023 1:00 PM Yani Díaz DO - 01/09/2023 3:00 PM EDTAttachments Note Date & Type Note Facility 02-07-2023 Telephone encount er Note Spoke to patient and relayed results of colonoscopy. Zain, please add to recall to repeat in 3 years, thanks. [facility] [employer] Work Phone: 02-07-2023 Miscellaneous Notes Formattin g of this note might be different from the original. Spoke to patient and relayed results of colonoscopy. Zain, please add to recall to repeat in 3 years, thanks. documented in this encounter [facility] 01-09-2023 History of Presen t illness Narrative Images from the original note were not included. [facility] [address] [facility] [id number] Visit type: New Patient Reason for Visit: Establish Care (Requesting lab work for liver function ) Assessment and Plan Diagnoses and all orders for this visit: Depression with anxiety - escitalopram (Lexapro) 10 MG tablet; Take 1 tablet (10 mg) by mouth daily. Hyperplastic colonic polyp, unspecified part of colon - [facility] General Surgery - Aidan Valadez MD; Future Screen for colon cancer - [facility] General Surgery - Aidan Valadez MD; Future Need for hepatitis C screening test Alcoholic cirrhosis of liver without ascites (CMS/HCC) (HCC) - Vitamin B12; Future - Hepatitis C antibody; Future - Comprehensive metabolic panel; Future - CBC; Future - Folate; Future Screening for diabetes mellitus - Hemoglobin A1c; Future Screening, lipid - Lipid panel; Future Tinnitus of both ears - External referral to ENT; Future Depression and anxiety worsening, restart lexapro Reviewed previous colonoscopy - will refer for repeat Refer to [facility] for tinnitus He is no longer drinking, but due for lab work Follow up in about 4 weeks (around 02/06/2023). 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 He is not drinking Review of Systems Constitutional: Negative for activity change, chills, diaphoresis, fatigue and fever. HENT: Positive for hearing loss and tinnitus. Negative for congestion, ear pain, nosebleeds, postnasal drip and sore throat. Eyes: Negative for photophobia, pain, discharge, redness, itching and visual disturbance. Respiratory: Negative for cough, shortness of breath and wheezing. Cardiovascular: Negative for chest pain, palpitations and leg swelling. Gastrointestinal: Negative for abdominal pain, constipation, diarrhea, nausea and vomiting. Endocrine: Negative for cold intolerance, heat intolerance, polydipsia, polyphagia and polyuria. Genitourinary: Negative for difficulty urinating, dysuria, flank pain, testicular pain and urgency. Musculoskeletal: Negative for arthralgias, back pain, joint swelling, myalgias and neck pain. Skin: Negative for color change, pallor, rash and wound. Neurological: Negative for dizziness, seizures, syncope, weakness, light-headedness and headaches. Hematological: Negative for adenopathy. Does not bruise/bleed easily. Psychiatric/Behavioral: Positive for dysphoric mood. Negative for agitation, confusion, hallucinations and sleep disturbance. The patient is nervous/anxious. No Known Allergies No outpatient medications prior to visit. No facility-administered medications prior to visit. Past Medical History: Diagnosis Date Cirrhosis (HCC) Depression Essential hypertension 02/06/2017 Hepatitis C Osteoarthritis Tubular adenoma of colon 07/06/2015 Vertigo Social History Socioeconomic History Marital status: Tobacco Use Smoking status: Former Packs/day: 3.00 Types: Cigarettes Quit date: 08/28/1984 Years since quittin.3 Smokeless tobacco: Never Vaping Use Vaping Use: Unknown Substance and Sexual Activity Alcohol use: Yes Alcohol/week: 5.0 standard drinks Drug use: Yes Comment: denies on 10/29/22 Past Surgical History: Procedure Laterality Date COLONOSCOPY 05/2014 COLONOSCOPY 02/13/2020 Dr. Valadez; repeat in 01/2023 LIVER BIOPSY 03/2014 Past Surgical History: Procedure Laterality Date COLONOSCOPY 05/2014 COLONOSCOPY 02/13/2020 Dr. Valadez; repeat in 01/2023 LIVER BIOPSY 03/2014 Family History Problem Relation Name Age of Onset Cancer Other niece Melanoma Cancer Father Objective BP 122/78 Pulse 72 Ht 5' 7 (1.702 m) Wt 180 lb (81.6 kg) SpO2 97% BMI 28.19 kg/m Physical Exam Vitals and nursing note reviewed. Constitutional: General: He is not in acute distress. Appearance: Normal appearance. He is not ill-appearing. HENT: Head: Normocephalic and atraumatic. Right Ear: Tympanic membrane, ear canal and external ear normal. Left Ear: Tympanic membrane, ear canal and external ear normal. Nose: Nose normal. Mouth/Throat: Mouth: Mucous membranes are dry. Eyes: General: No scleral icterus. Right eye: No discharge. Left eye: No discharge. Extraocular Movements: Extraocular movements intact. Conjunctiva/sclera: Conjunctivae normal. Cardiovascular: Rate and Rhythm: Normal rate and regular rhythm. Pulses: Normal pulses. Heart sounds: Normal heart sounds. No murmur heard. No gallop. Pulmonary: Effort: Pulmonary effort is normal. No respiratory distress. Breath sounds: Normal breath sounds. No stridor. No wheezing, rhonchi or rales. Chest: Chest wall: No tenderness. Abdominal: General: Abdomen is flat. Bowel sounds are normal. There is no distension. Palpations: Abdomen is soft. There is no mass. Tenderness: There is no abdominal tenderness. There is no right CVA tenderness, left CVA tenderness, guarding or rebound. Hernia: No hernia is present. Musculoskeletal: General: Normal range of motion. Cervical back: Normal range of motion and neck supple. Right lower leg: No edema. Left lower leg: No edema. Skin: General: Skin is warm and dry. Findings: No rash. Neurological: General: No focal deficit present. Mental Status: He is alert and oriented to person, place, and time. Mental status is at baseline. Psychiatric: Mood and Affect: Mood normal. Behavior: Behavior normal. Thought Content: Thought content normal. Judgment: Judgment normal. Data Reviewed POCT: Labs: Imaging/Testing: Chart Clean Up: There are no discontinued medications. Anay Díaz DO 01/09/2023 4:13 PM documented in this encounter [facility] 10-29-2022 Emergency department Note ANNAMARIE RN reviewed discharge instructions and patient verbalized understanding. No further questions. Patient ambulated out of ED with strong steady gait. Respirations even and non labored. No acute distress. A&O x4. Nya Noguera RN 10/29/222151 [facility] 10-29-2022 Emergency department Note DIANA DE LUNA reviewed discharge instructions and patient verbalized understanding. No further questions. Patient ambulated out of ED with strong steady gait. Respirations even and non labored. No acute distress. A&O x4. Nya Noguera RN 10/29/222151 Wound care provided by DIANA DE LUNA and patient tolerated well. Tube gauze applied. No bleeding upon discharge Nya Noguera RN 10/29/222149 Physician bedside for sutures Cristy Jang RN 10/29/222116 Medic bedside performing irrigation Cristy Jang RN 10/29/222017 Emergency Department Encounter [facility] ED Patient: Jesse Emery : 1955 Date of Evaluation: 10/29/2022 ED Provider: Duke Rivera MD Note: I wore an N95 mask and gloves during this encounter. CHIEF COMPLAINT: Finger laceration HPI: Jesse Emery is a 67 y.o. male [id number] with PMH including hypertension, presents with concern for finger laceration. Patient reports today he accidentally cut his right hand index finger with a chainsaw when his glove came off, he denies pain or injury elsewhere, numbness weakness, or other symptoms or concerns. Patient reports last tetanus greater than 5 years ago. REVIEW OF SYSTEMS: 5 systems reviewed and otherwise acutely negative except as per HPI. HISTORIES: PAST MEDICAL HISTORY: as per HPI SOCIAL HISTORY: Former tobacco use, alcohol use MEDICATIONS: Nursing notes and EMR reviewed ALLERGIES: Nursing notes and EMR reviewed PHYSICAL EXAM: Vital signs: reviewed General: no apparent distress, well appearing Cardiovascular: regular rhythm, normal rate, right radial pulse palpable, right hand warm and well-perfused with capillary for less than 2 seconds throughout including the distal index finger Respiratory: non-labored breathing, no tachypnea Extremities: Right hand index finger with laceration at the mid distal phalanx lateral aspect up to the nail, nail intact without damage, minimal oozing bleeding, no visualized or palpable foreign body or palpable bony deformity, no other wounds throughout the hand, patient tolerates MCP PIP and DIP flexion and extension of the index finger Integumentary: warm, dry Neurologic: alert, no obvious neurologic deficits, sensation intact distal right index finger, patient is able to flex and extend the affected digit Procedure: laceration repair Performed by: Duke Rivera MD Location: right index finger Length: 2 cm Local anesthesia was provided using 1% lidocaine, 2 mL Wound irrigated with copious saline by ED nursing staff Wound explored to its base, no visible foreign body in the wound identified Repaired with single layer closure, using 5-0 Ethilon, including 7 total interrupted sutures Good hemostasis and cosmetic result Procedure was well tolerated There were no immediate complications Wound dressed with bacitracin and gauze MEDICAL DECISION MAKING: Medications Tdap (BoostRIX) vaccine 0.5 mL (0.5 mL IntraMUSCular Given 10/29/222132) bacitracin ointment ( Topical Given 10/29/222132) lidocaine PF (Xylocaine) 1 % injection - Pyxis ADS Override Pull (30 mL Given 10/29/222133) Jesse Emery is a 67 y.o. male who presents as above, with laceration to the right hand index finger, isolated injury, neurovascular intact, no evidence of foreign body on exam, no functional limitation, fingernail intact. Discussed with patient, will obtain hand x-ray to evaluate for bony injury or foreign body, update tetanus, irrigate wound, and repair with sutures. Right hand x-ray obtained, interpreted per radiologist no radiopaque foreign body, no acute osseous abnormality Wound management discussed, patient agrees to repair with sutures, please see dedicated procedure note as above, patient informed of findings, in agreement with plan for discharge, recommend NSAIDs for discomfort, wound care discussed, recommend follow-up for suture removal in 7 to 10 days, strict return precautions discussed including as related to potential infection, patient in agreement with plan, stable for discharge. DIAGNOSIS: Right index finger laceration DISPOSITION: Discharge Comment: Please note this report has been produced using speech recognition software and may contain errors related to that system including errors in grammar, punctuation, and spelling, as well as words and phrases that may be inappropriate. If there are any questions or concerns please feel free to contact the dictating provider for clarification. Duke Rivera MD Acute [facility] Duke Rivera MD 10/30/22 0028 Patient arrives with c/o right index finger laceration from an electric chainsaw. +2cm laceration with an additional slightly smaller horizontal laceration just beneath the 2cm laceration. +mild active bleeding controlled with pressure. Patient denies any other injuries. Call campbell bedside. documented in this encounter [facility] 10-29-2022 Emergency department Note Wound care provided by DIANA DE LUNA and patient tolerated well. Tube gauze applied. No bleeding upon discharge Nya Noguera RN 10/29/222149 [facility] 10-29-2022 Hospital Discharg e instructions Duke Rivera MD - 10/29/2022 9:22 PM EST Please return to the Emergency Department immediately for new or worsening symptoms or any new concerns, including signs and symptoms of wound infection such as redness, warmth, drainage, fever or chills. Please keep wound clean and dry, you may wash with gentle soap and water, avoid disrupting sutures. You may take ibuprofen and/or Tylenol as needed for discomfort according to package instructions. Please follow-up with [your primary care doctor] for suture removal in 7-10 days, as well as further evaluation and management of elevated blood pressure as indicated. The following attachments cannot be sent through Care Everywhere.Wound Care (Frisian)Laceration Repair With Stitches ED (Frisian)documented in this encounter [facility] 10-29-2022 Emergency department Note Physician bedside for sutures Cristy Jang RN 10/29/222116 [facility] 10-29-2022 Emergency department Note Medic bedside performing irrigation Cristy Jang RN 10/29/222017 [facility] 10-29-2022 Emergency department Triage note Patient arrives with c/o right index finger laceration from an electric chainsaw. +2cm laceration with an additional slightly smaller horizontal laceration just beneath the 2cm laceration. +mild active bleeding controlled with pressure. Patient denies any other injuries. Call campbell bedside. [facility] 10-29-2022 Physician Emergen cy department Note Emergency Department Encounter [facility] ED Patient: Jesse Emery : 1955 Date of Evaluation: 10/29/2022 ED Provider: Duke Rivera MD Note: I wore an N95 mask and gloves during this encounter. CHIEF COMPLAINT: Finger laceration HPI: Jesse Emery is a 67 y.o. male [id number] with PMH including hypertension, presents with concern for finger laceration. Patient reports today he accidentally cut his right hand index finger with a chainsaw when his glove came off, he denies pain or injury elsewhere, numbness weakness, or other symptoms or concerns. Patient reports last tetanus greater than 5 years ago. REVIEW OF SYSTEMS: 5 systems reviewed and otherwise acutely negative except as per HPI. HISTORIES: PAST MEDICAL HISTORY: as per HPI SOCIAL HISTORY: Former tobacco use, alcohol use MEDICATIONS: Nursing notes and EMR reviewed ALLERGIES: Nursing notes and EMR reviewed PHYSICAL EXAM: Vital signs: reviewed General: no apparent distress, well appearing Cardiovascular: regular rhythm, normal rate, right radial pulse palpable, right hand warm and well-perfused with capillary for less than 2 seconds throughout including the distal index finger Respiratory: non-labored breathing, no tachypnea Extremities: Right hand index finger with laceration at the mid distal phalanx lateral aspect up to the nail, nail intact without damage, minimal oozing bleeding, no visualized or palpable foreign body or palpable bony deformity, no other wounds throughout the hand, patient tolerates MCP PIP and DIP flexion and extension of the index finger Integumentary: warm, dry Neurologic: alert, no obvious neurologic deficits, sensation intact distal right index finger, patient is able to flex and extend the affected digit Procedure: laceration repair Performed by: Duke Rivera MD Location: right index finger Length: 2 cm Local anesthesia was provided using 1% lidocaine, 2 mL Wound irrigated with copious saline by ED nursing staff Wound explored to its base, no visible foreign body in the wound identified Repaired with single layer closure, using 5-0 Ethilon, including 7 total interrupted sutures Good hemostasis and cosmetic result Procedure was well tolerated There were no immediate complications Wound dressed with bacitracin and gauze MEDICAL DECISION MAKING: Medications Tdap (BoostRIX) vaccine 0.5 mL (0.5 mL IntraMUSCular Given 10/29/222132) bacitracin ointment ( Topical Given 10/29/222132) lidocaine PF (Xylocaine) 1 % injection - Pyxis ADS Override Pull (30 mL Given 10/29/222133) Jesse Emery is a 67 y.o. male who presents as above, with laceration to the right hand index finger, isolated injury, neurovascular intact, no evidence of foreign body on exam, no functional limitation, fingernail intact. Discussed with patient, will obtain hand x-ray to evaluate for bony injury or foreign body, update tetanus, irrigate wound, and repair with sutures. Right hand x-ray obtained, interpreted per radiologist no radiopaque foreign body, no acute osseous abnormality Wound management discussed, patient agrees to repair with sutures, please see dedicated procedure note as above, patient informed of findings, in agreement with plan for discharge, recommend NSAIDs for discomfort, wound care discussed, recommend follow-up for suture removal in 7 to 10 days, strict return precautions discussed including as related to potential infection, patient in agreement with plan, stable for discharge. DIAGNOSIS: Right index finger laceration DISPOSITION: Discharge Comment: Please note this report has been produced using speech recognition software and may contain errors related to that system including errors in grammar, punctuation, and spelling, as well as words and phrases that may be inappropriate. If there are any questions or concerns please feel free to contact the dictating provider for clarification. Duke Rivera MD [facility] Duke Rivera MD 10/30/22 0028 [facility] [employer] Phone: Evaluation note Diagnosis Alcoholic cirrhosis of liver without ascites (HCC) Alcoholic cirrhosis of liver Screening for diabetes mellitus Screening for HIV without presence of risk factors Special screening examination for other specified viral diseases Screening for hyperlipidemia Screening for lipoid disorders documented in this encounter [employer] Phone: Evaluation note* Diagnosis Depression with anxiety- Primary Dysthymic disorder Hyperplastic colonic polyp, unspecified part of colon Screen for colon cancer Special screening for malignant neoplasms, colon Need for hepatitis C screening test Special screening examination for other specified viral diseases Alcoholic cirrhosis of liver without ascites (CMS/HCC) (HCC) Screening for diabetes mellitus Screening, lipid Tinnitus of both ears Unspecified tinnitus documented in this encounter [facility] [employer] note* Diagnosis Personal history of other infectious and parasitic diseases- Primary documented in this encounter [employer] note* Diagnosis Laceration of right index finger without foreign body without damage to nail, initial encounter- Primary documented in this encounter eXpressoReason for referral (narrative)* Consultation (Routine) - Pending Review Specialty Diagnoses / Procedures Referred By Tyrone velazquez Referred To Contact Otolaryngology Diagnoses Tinnitus of both ears Procedures ND OFFICE/OUTPATIENT [facility] 60-74 MINUTES Anay Díaz, DO [address] [place] [address] Sage Justin, DO [address] [address] Referral ID Status Reason Start Date Expiration Date Visits Requested Visits Authorized [id number] Pending Review Specialty Services Required 01/09/2023 01/09/2024 1 1 * Consultation (Routine) - Pending Review Specialty Diagnoses / Procedures Referred By Tyrone velazquez Referred To Contact General Surgery Diagnoses Hyperplastic colonic polyp, unspecified part of colon Screen for colon cancer Procedures ND OFFICE/OUTPATIENT [facility] 60-74 MINUTES Anay Díaz DO [address] [place] [id number] Aidan Valadez MD [address] [place] [address] [address] [place] [address] Referral ID Status Reason Start Date Expiration Date Visits Requested Visits Authorized [id number] Pending Review Specialty Services Required 01/09/2023 01/09/2024 1 1 [facility] Summary Purpose Family History No Family History Records FoundNo Family History Records FoundNo Family History Records FoundNo Family History Records Found Advance Directives No Advanced Directives Records FoundDocuments on File Type Date Recorded 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 Advance Directives and Living Will Power of Wire Dropper Latest Code Status on File Code Status Date Activated Date Inactivated Comments Full Code 02/02/2023 9:16 AM 02/02/2023 2:56 PM Additional Source Comments (unrecognized sect ion and content) No Status Records FoundNo Status Records FoundNo Status Records FoundNo Status Records Found INFORMATION SOURCE (unrecogn ized section and content) DATE CREATED AUTHOR 10/22/2019 [facility] [employer] DATE CREATED AUTHOR AUTHOR'S ORGANIZ ATION 08/21/2020 [facility] DATE CREATED AUTHOR AUTHOR'S ORGANIZ ATION 06/03/2024 [facility] DATE CREATED AUTHOR AUTHOR'S ORGANIZ ATION 11/06/2024 [facility] Reason for Visit (unrecogniz ed section and content) Reason Comments Establish Care Requesting lab work for liver function Reason Onset Date Comments Results 02/07/2023 Colonoscopy Reason Comments Laceration Right index finger Care Teams (unrecognized sec tion and content) 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 Start Date End Date Anay Díaz, DO [address] [place] [id number] PCP - General Internal Medicine 01/09/23 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 Specialty Start Date End Date Anay Díaz, DO [address] [place] [id number] PCP - General Internal Medicine 01/09/23 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 Specialty Start Date End Date Anay Díaz, DO [address] [place] [id number] PCP - General Internal Medicine 01/09/23 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 Specialty Start Date End Date Anay Díaz DO [address] [place] [id number] PCP - General Internal Medicine 01/09/23 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 Specialty Start Date End Date Anay Díaz, DO [address] [place] [id number] PCP - General Internal Medicine 10/29/22 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 Specialty Start Date End Date Anay Díaz, DO [address] [place] [id number] PCP - General Internal Medicine 10/29/22 Scheduled Active and Recently Administ ered Medications (unrecognized section and content) Medication Order 10/27/2022 10/28/2022 10/29/2022 bacitracin ointment (COMPLETED) Topical, Once, On 10/29/22 at 1955, For 1 dose 6503 (Given - Provid er: Cristy Jang RN) lidocaine (Xylocaine) 1 % injection 5 mL 5 mL, Infiltration, Once, On 10/29/22 at 195, For 1 dose 1954 (Not Given - Pr ovider: Cristy Jang RN - Reason: Other - Comment: out of stock) No Frequency Medication Order 10/27/2022 10/28/2022 10/29/2022 lidocaine PF (Xylocaine) 1 % injection - Pyxis ADS Override Pull (COMPLETED) Starting on 10/29/22 at 2013, For 1 dose, Cristy Jang: cabinet override 2133 (Given - Provid er: Cristy Jang RN - Comment: given by physician) FOR RECORDS PERTAINING TO PATIENTS WHO ARE OR HAVE BEEN ENROLLED IN A CHEMICAL DEPENDENCY/SUBSTANCEABUSE PROGRAM, SOME INFORMATION MAY BE OMITTED. This clinical summary was aggregated from multiple sources. Caution should be exercised in using it in the provision of clinical care. This summary normalizes information from multiple sources, and as a consequence, information in this document may materially change the coding, format and clinical context of patient data. In addition, data may be omitted in some cases. CLINICAL DECISIONS SHOULD BE BASED ON THE PRIMARY CLINICAL RECORDS. [email or web address] [facility]. provides no warranty or guarantee of the accuracy or completeness of information in this document.
[2025-04-21 23:22] LABS: Hematocrit 46.4 % (40-54); Hemoglobin 16.0 g/dL (13.0-16.5); Immature Granulocytes Count 0.010 X10^3/uL (0.0-0.0); Mean Corp Hgb Conc 34.5 g/dL (32-36); Mean Corpuscular Volume 91.5 fL (80-94); Mean Platelet Vol. 11.2 fl (6.2-12.0); NRBC Flagged by Analyzer 0 % (0-5); Platelet Count 221 K/mm3 (150-450); RBC Distribution Width CV 12.9 % (11.6-14.6); RBC Distribution Width SD 43.1 fl (35.1-43.9); Red Blood Count 5.07 M/mm3 (4.6-6.2); White Blood Count 7.9 K/mm3 (4.4-11.0)
[2025-04-21 23:44] LABS: AST(SGOT) 26 U/L (<=37); Alanine Aminotransfer ALT/SGPT 35 U/L (<=46); Albumin, Serum 4.4 g/dL (3.4-4.8); Alkaline Phosphatase 85 U/L (40-129); Anion Gap 13 (5-15); BUN 19 mg/dL (4-19); BUN/Creat Ratio 16.1 RATIO (10-20); Calcium,Total 9.2 mg/dL (7.6-11.0); Carbon Dioxide 22.0 mmol/L (21.0-32.0); Chloride 104 mmol/L (98-108); Cholesterol 175 mg/dL (<=200); Globulin 2.4 g/dL (2.2-4.2); Glucose 101 mg/dL (70-99); Low Density Lipoprotein Calc. 83 mg/dL; PSA,Total - Annual Screen 1.63 ng/mL (0.02-4.00); Potassium 4.5 mmol/L (3.3-5.1); Triglycerides 252 mg/dL; Very Low Density Lipoprotein 50 mg/dL (5-40); cholesterol:hdl ratio screen 4.21
[2025-04-23 05:07] LABS: CRP, High Sensitivity 0.66 mg/L (0.00-3.00)
== END | disposition home or self-care (01) ==
PROVIDERS: Referring Provider Nurse Practitioner; Visit Provider Nurse Practitioner
DX: Z12.5 Encounter for screening for malignant neoplasm of prostate (principal); E03.9 Hypothyroidism, unspecified; R20.0 Anesthesia of skin; E78.00 Pure hypercholesterolemia, unspecified; F41.9 Anxiety disorder, unspecified
CPT/HCPCS: 80053; 80061; 84153; 84443; 85025; 86141; G0103

== ENCOUNTER → 2025-07-02 | Outpatient (CLI) | payer MEDICARE, SELFPAY ==
--- NOTE | 2025-07-02 09:57 | CDU_ITS ---
Reason For Study Reason For Study: Right Sided Numbness Rt. Velocities/BP Lt. Velocities/BP Prox CCA 77.6/16.0 cm/sec. Prox CCA 87.5/13.8 cm/sec. Mid CCA 82.0/14.9 cm/sec. Mid CCA 84.2/18.2 cm/sec. Dist CCA 83.1/19.3 cm/sec. Dist CCA 74.3/19.3 cm/sec. Prox ICA 62.2/12.7 cm/sec. Prox ICA 45.9/11.0 cm/sec. Mid ICA 59.6/21.0 cm/sec. Mid ICA 47.9/16.0 cm/sec. Dist ICA 101.6/28.5 cm/sec. Dist ICA 96.5/29.0 cm/sec. Rt. ICA/CCA = 1.2. Lt. ICA/CCA = 1.1. Prox ECA 71.8/11.3 cm/sec. Prox ECA 65.5/12.7 cm/sec. Rt. Vert. 54.4/15.7 cm/sec. Lt. Vert. 43.8/11.8 cm/sec. Right Extracranial There is intimal thickening but no significant atherosclerotic plaque noted in the right common carotid artery. There is intimal thickening but no significant atherosclerotic plaque noted in the right internal carotid artery. There is intimal thickening but no significant atherosclerotic plaque noted in the right external carotid artery. Antegrade flow is noted in the right vertebral artery. Left Extracranial There is homogeneous, smooth atherosclerotic plaque noted in the left common carotid artery. There is intimal thickening but no significant atherosclerotic plaque noted in the left internal carotid artery. There is intimal thickening but no significant atherosclerotic plaque noted in the left external carotid artery. Antegrade flow is noted in the left vertebral artery. Procedure Carotid Duplex [id number]. This is a Carotid Duplex examination using B-mode, color flow and specral Doppler. The exam was diagnostic. Exam performed in department. VL/Carotid Duplex Ultrasound Interpretation Summary Normal right extracranial internal carotid. Normal left extracranial internal carotid. Patent and antegrade vertebrals bilaterally. Ordering Physician: Jus Daniel Referring Physician: Laverne Doan Performed By: Jefe Buckley RVT and Student
== END | disposition home or self-care (01) ==
LOC: CVS 09:52
PROVIDERS: PCP Nurse Practitioner; Referring Provider Internal Medicine Cardiovascular Disease; Visit Provider Internal Medicine Cardiovascular Disease
DX: R20.0 Anesthesia of skin (principal)
CPT/HCPCS: 93880